=== PATIENT | female | born 1995 | race Caucasian/White ===

== ENCOUNTER 2017-03-20 10:23 | Emergency (ER) | payer MEDICAID ==
[2017-03-20 13:52] VITALS: BP 114/71
== END 2017-03-20 13:52 | disposition home or self-care (01) ==
LOC: ED 10:23
DX: M25.571 Pain in right ankle and joints of right foot (principal); M79.671 Pain in right foot
CPT/HCPCS: Q0092

== ENCOUNTER 2017-11-12 22:16 | Emergency (ER) | payer MEDICAID ==
[~2017-11-12] VITALS: Ht 160 cm; Wt 67.6 kg
[2017-11-12 22:23] VITALS: BP 134/80; Ht 160 cm; Wt 67.6 kg
== END 2017-11-13 01:26 | disposition left against medical advice (07) ==
LOC: ED 22:16
DX: Z53.21 Procedure and treatment not carried out due to patient leaving prior to being seen by health care provider (principal)

== ENCOUNTER 2017-12-15 14:43 | Emergency (ER) | payer MEDICAID ==
[~2017-12-15] VITALS: Ht 154.9 cm; Wt 85.7 kg
[2017-12-15 15:07] VITALS: Ht 154.9 cm; Wt 85.7 kg
[2017-12-15 16:07] VITALS: BP 124/70
== END 2017-12-15 16:08 | disposition home or self-care (01) ==
LOC: ED 14:43
DX: M25.531 Pain in right wrist (principal)

== ENCOUNTER 2020-06-21 12:57 | Emergency (ER) | payer MEDICAID ==
[~2020-06-21] VITALS: Ht 154.9 cm; Wt 83.5 kg
[2020-06-21 13:11] VITALS: Ht 154.9 cm; Wt 83.5 kg
[2020-06-21 14:51] LABS: CALCIUM 9.5 mg/dL (8.5-10.1); CHLORIDE SERUM 100 mmol/L (98-107); CREATININE SERUM 0.7 mg/dL (0.6-1.0); GFR1 > 60 mL/min; GLUCOSE SERUM 77 mg/dL (74-106); POTASSIUM SERUM 3.3 mmol/L (3.5-5.1); SODIUM SERUM 131 mmol/L (136-145)
[2020-06-21 16:31] VITALS: BP 107/68
== END 2020-06-21 16:31 | disposition home or self-care (01) ==
LOC: ED 12:57
PROVIDERS: Emergency Medicine
DX: O21.0 Mild hyperemesis gravidarum (principal); Z3A.14 14 weeks gestation of pregnancy
CPT/HCPCS: J0780; J1200; J7030